=== PATIENT | female | born 1950 | race Hispanic/Latino ===

== ENCOUNTER 2018-05-10 05:50 | Observation (INO) | payer MEDICARE ==
[~2018-05-10] VITALS: Ht 160 cm; Wt 87.5 kg
[~2018-05-10 05:50] MED LIST: ALLERGY OTC PO; ASPIR 8181 MG PO; LOSARTAN POTAS100 MG PO; MELOXICAM7.5 MG PO; SIMVASTATIN20 MG PO
[2018-05-10] MEDS ORDERED: CELECOXIB 200 MG CAP ONE (06:14)
[2018-05-10] MEDS ORDERED: GABAPENTIN 300 MG CAP ONE (06:14)
[2018-05-10] MEDS ORDERED: DEXAMETHASONE SOD PHOS 10 MG/1 ML VIAL ONE (06:14)
[2018-05-10] MEDS ORDERED: CEFAZOLIN SOD 2 GM/D5W 50ML 50 ML IV ONE (06:15)
[2018-05-10] MEDS ORDERED: BACITRACIN 50,000 UNIT VIAL ONE (06:38)
[2018-05-10] MEDS ORDERED: TRANEXAMIC ACID 1,000 MG/10 ML ML ONE (06:38)
[2018-05-10] MEDS ORDERED: ROPIVACAINE 246.25 MG, EPINEPHRINE HCL 1:1000 0.5 MG, CLONIDINE HCL 0.08 MG, KETOROLAC ... INJ ONE ×5 (07:30)
[2018-05-10] MEDS ORDERED: KETOROLAC TROMETHAMINE 30 MG/ML VIAL IV PRN (09:15)
[2018-05-10] MEDS ORDERED: ONDANSETRON HCL INJ 2 MG/ML VIAL IV PRN (09:15)
[2018-05-10] MEDS ORDERED: HYDROCODONE/APAP 5MG-325MG TAB PO PRN (09:15)
[2018-05-10] MEDS ORDERED: DOCUSATE SODIUM 100 MG CAP PO PRN (09:15)
[2018-05-10] MEDS ORDERED: PROMETHAZINE HCL (IM) 25 MG/ML VIAL INJ PRN (09:15)
[2018-05-10] MEDS ORDERED: ACETAMINOPHEN 650 MG SUPP PR PRN (09:15)
[2018-05-10] MEDS ORDERED: DIPHENHYDRAMINE HCL INJ 50 MG/ML VIAL IM/IV PRN (09:15)
[2018-05-10] MEDS ORDERED: ZOLPIDEM TARTRATE 5 MG TAB PO PRN (09:15)
--- NOTE | 2018-05-10 10:37 | Operative Report ---
DATE OF PROCEDURE: May 10, 2018 INSURANCE MANAGER: Brett Neil PA-C The patient was brought to the operating room for induction of anesthesia. Throughout this case, my PA's assistance was necessary for retraction of soft tissue and positioning of the extremity. This allows for efficient and technically successful execution of the operation and is considered medically necessary. PREOPERATIVE DIAGNOSIS: Osteoarthritis, left knee. POSTOPERATIVE DIAGNOSIS: Osteoarthritis, left knee. PROCEDURE: Left total knee arthroplasty. INDICATIONS: The patient is a 68-year-old lady who has end-stage arthritis of her left knee. She has failed conservative management and would now like to proceed with a left total knee replacement. The risks and benefits have been discussed. She states she understands and wishes to proceed. DESCRIPTION OF PROCEDURE: The patient was brought to the operating room and placed under general anesthetic. She received prophylactic antibiotics, a regional block and transexamic acid in the holding area. Her left lower extremity was prepped and draped in a sterile manner. A preoperative time out was performed. The extremity was exsanguinated, and a proximal tourniquet was inflated to 300 mmHg. An anterior incision with a medial parapatellar arthrotomy was performed. Clear synovial fluid was removed from the joint. Soft-tissue releases were performed to bring the knee up into flexion with the patella everted. The cruciate ligaments were sacrificed. A [employer] II posterior stabilized knee system was used. Meniscal remnants and marginal osteophytes were removed. Dense sclerotic bone was encountered in the medial compartment. An extramedullary cutting guide was used to resect the proximal tibia. The tibial baseplate was noted to be a size 3. The central fin punch was impacted, and attention was directed towards the distal femur. An intramedullary cutting guide was used to resect the distal femur in 6 degrees of valgus and external rotation referenced off of a combination landmarks including Capron's line, the epicondylar axis and posterior condyles. The femoral component was a size #5. The anterior and posterior cuts were made. Trial reductions were performed. I felt that an 11-mm tibial insert provided optimal soft-tissue balancing in flexion and extension. A roughly +2 mm cut had been necessary due to medial wear on the tibial side. The patella was then resurfaced with a 29 mm x 7.5 mm patellar button. The thickness was checked before and after and was right at 20 mm. Patellar tracking was noted to be concentric. The trial implants were then all removed. A 100 mL premixed pericapsular SAMEER injection was placed into the surrounding soft tissue. The knee was thoroughly irrigated with a shower-tip pulsatile lavage. The components were cemented into place using a single mix of Palacos cement preloaded with antibiotics. Care was taken to remove extravasated cement. The wound was further irrigated while the cement cured. The arthrotomy was then closed with interrupted #1 Ethibond. The knee was put through flexion and extension to ensure a secure closure. The skin was closed with subcuticular Vicryl and gene. A sterile Aquacel dressing was applied. The patient was extubated and transported to the recovery room in stable condition. Blood loss was minimal. All needle and sponge counts were correct. Job#: [id number]
--- NOTE | 2018-05-10 11:18 | Diagnostic Imaging Report ---
PROCEDURE: X-RAY LEFT KNEE, ONE OR TWO VIEWS COMPARISON: None. INDICATIONS:POST LEFT KNEE SURGERY FINDINGS: See conclusion. CONCLUSION: Status post total left knee arthroplasty with surrounding soft tissue swelling, air and gene consistent with recent surgery. No acute fractures. Hardware appears intact and alignment is maintained. Dictated by: BERT JAVIER M.D. on 05/10/2018 at 9:49 Electronically approved by: BERT JAVIER M.D. on 05/10/2018 at 9:49
[2018-05-10 12:00] VITALS: BP 139/64
[2018-05-10] MEDS: ACETAMINOPHEN 1000 MG/100 ML IV SCH ×3 (12:00→19:17)
[2018-05-10] MEDS ORDERED: DEXAMETHASONE SOD PHOS INJ 4 MG/ML VIAL ONE (12:56)
[2018-05-10] MEDS ORDERED: LIDOCAINE HCL 2% LOCAL INJ 5 ML SDV VIAL INJ ONE (12:56)
[2018-05-10] MEDS ORDERED: PROPOFOL IV EMULSION 10 MG/ML 20 ML VIAL ONE (12:56)
[2018-05-10] MEDS ORDERED: ONDANSETRON HCL INJ 2 MG/ML VIAL ONE (12:56)
[2018-05-10] MEDS ORDERED: SEVOFLURANE INHAL SOLN 250 ML PEN BTL ONE (12:56)
[2018-05-10 13:20] VITALS: BP 139/64
[2018-05-10] MEDS: SODIUM CHLORIDE 0.9% 1000ML 1,000 ML IV SCH ×3 (13:29→22:18)
[2018-05-10] MEDS ORDERED: ROPIVACAINE 0.5% 5 MG/ML 30 ML SDV ONE (13:45)
[2018-05-10] MEDS ORDERED: LIDOCAINE 2%/ EPINEPHRINE 20ML MDV ONE (13:45)
[2018-05-10] MEDS: CEFAZOLIN SOD 1 GM VIAL IV SCH ×2 (13:57→22:00)
[2018-05-10] MEDS ORDERED: MIDAZOLAM HCL 2 MG/2 ML VIAL ONE (14:00)
[2018-05-10] MEDS ORDERED: CEFAZOLIN SOD 1 GM/D5W 50ML 50 ML IV SCH (14:00)
[2018-05-10] MEDS ORDERED: FENTANYL CITRATE/PF 100MCG/2 ML INJ ONE (14:00)
[2018-05-10 17:53] VITALS: BP 105/60
[2018-05-10] MEDS: ASPIRIN 325 MG TAB PO SCH (18:39)
[2018-05-10] MEDS: CELECOXIB 100 MG CAP PO SCH (18:39)
[2018-05-10 20:00] VITALS: BP 120/55
[2018-05-11] VITALS: BP 122/58
[2018-05-11] MEDS: ACETAMINOPHEN 1000 MG/100 ML IV SCH ×2 (00:20→06:00)
[2018-05-11 04:00] VITALS: BP 128/61
[2018-05-11 05:37] LABS: HEMATOCRIT 37.2 % (34.2-44.1); HEMOGLOBIN 12.5 g/dL (12.0-16.0)
[2018-05-11] MEDS: CEFAZOLIN SOD 1 GM VIAL IV SCH (06:00)
[2018-05-11] MEDS ORDERED: LORATADINE 10 MG TAB PO PRN (06:00)
[2018-05-11 08:12] VITALS: BP 139/64
[2018-05-11] MEDS ORDERED: ASPIRIN325 MG PO (08:34)
[2018-05-11] MEDS ORDERED: LOSARTAN POTASSIUM 100 MG TAB PO SCH (09:00)
[2018-05-11 09:12] VITALS: BP 139/64
[2018-05-11] MEDS: ASPIRIN 325 MG TAB PO SCH (09:12)
[2018-05-11] MEDS: CELECOXIB 100 MG CAP PO SCH (09:12)
[2018-05-11] MEDS ORDERED: ACETAMINOPHEN 1000 MG/100 ML IV PRN (09:15)
[2018-05-11] MEDS: HYDROCODONE/APAP 7.5MG-325MG 1 EA TAB PO PRN ×2 (09:30→13:53)
[2018-05-11] MEDS ORDERED: HYDROCODON-ACE1 EA12 PO (11:27)
[2018-05-11 11:57] VITALS: BP 168/59
[2018-05-11] MEDS ORDERED: SIMVASTATIN 20 MG TAB PO SCH (21:00)
== END 2018-05-11 15:03 | disposition home health service (06) ==
LOC: OR 05:50 → PACU V 09:17 → MED/SURG 11:05
PROVIDERS: ADMIT Specialist; ATTEND Specialist
DX: M17.12 Unilateral primary osteoarthritis, left knee (principal); I10 Essential (primary) hypertension; E78.00 Pure hypercholesterolemia, unspecified; D64.9 Anemia, unspecified
CPT/HCPCS: 27447; 36415; 73560; 85014; 85018; 86850; 86900; 86920; 97116; 97139; 97161; 97530; G0378 ×2; G8978; G8979; J0171; J0690 ×2; J1100 ×2; J1200; J1885; J2001 ×2; J2250; J2405; J2795; J7030